=== PATIENT | female | born 1935 | race Caucasian/White ===

== ENCOUNTER → 2017-08-26 | Outpatient (CLI) | payer MEDICARE, OTHER ==
[~2017-08-26] MED LIST: ALBUTEROL0.09 MG/A1 IH; ALLERGY MED; ASPIR-LOW81 MG PO; ASPIRIN 81M81 MG/TA2 PO; AVELOX 400MG T400 MG PO; BLOOD PRESSURE MED; CETIRIZINE; COZAAR100 MG PO; DUO-KAPS1 CAP PO; LISINOPRIL; NORVASC2.5 MG PO; PERCOCET 325 MG1 TA2 PO; SINGULAIR10 MG PO; VITAMIN C PUR1000 MG; ZOCOR40 MG PO; ZYRTEC 10MG
== END ==
LOC: COL.RAD 10:13
DX: M48.02 Spinal stenosis, cervical region (principal); R60.0 Localized edema; Z98.1 Arthrodesis status; Z98.890 Other specified postprocedural states

== ENCOUNTER 2018-01-10 12:20 | Emergency (ER) | payer MEDICARE, OTHER ==
[~2018-01-10] VITALS: Ht 154.9 cm; Wt 53.6 kg
[~2018-01-10 12:20] MED LIST changes: -LEXAPRO 10MG10 MG PO; -NORVASC 5MG5 MG/TAB PO; -VITAMIN B COMPL1 T16 PO; -ZYRTEC 10MG10 MG PO
[2018-01-10 12:22] VITALS: BP 135/63; PULSE 67; TEMP 97.6
[2018-01-10] MEDS ORDERED: NORVASC 5MG5 MG/TAB PO (12:38)
[2018-01-10] MEDS ORDERED: ZYRTEC 10MG10 MG PO (12:39)
[2018-01-10] MEDS ORDERED: COZAAR100 MG PO (12:40)
[2018-01-10] MEDS ORDERED: LEXAPRO 10MG10 MG PO (12:40)
[2018-01-10] MEDS ORDERED: VITAMIN B COMPL1 T16 PO (12:40)
== END 2018-01-10 13:40 | disposition home or self-care (01) ==
LOC: COL.ER 12:20
DX: M79.662 Pain in left lower leg (principal); I10 Essential (primary) hypertension

== ENCOUNTER → 2018-01-10 | Outpatient (CLI) | payer MEDICARE, OTHER ==
[~2018-01-10] MED LIST changes: +LEXAPRO 10MG10 MG PO; +NORVASC 5MG5 MG/TAB PO; +VITAMIN B COMPL1 T16 PO; +ZYRTEC 10MG10 MG PO
[2018-01-10 10:48] LABS: CALCIUM 9.7 mg/dL (8.4-10.2); CREATININE, serum 0.73 mg/dL (0.52-1.25); POTASSIUM 4.6 mmol/L (3.4-5.0)
== END ==
LOC: COL.LAB 10:13
PROVIDERS: Nurse Practitioner Family
DX: M79.662 Pain in left lower leg (principal)

== ENCOUNTER 2018-05-28 08:26 | Emergency (ER) | payer MEDICARE, OTHER ==
[~2018-05-28] VITALS: Ht 154.9 cm; Wt 53.6 kg
[~2018-05-28 08:26] MED LIST changes: +LEXAPRO 10MG10 MG PO; +NORVASC 5MG5 MG/TAB PO; +VITAMIN B COMPL1 T16 PO; +ZYRTEC 10MG10 MG PO
[2018-05-28 08:44] LABS: COLLECTION METHOD CLEAN CATCH
[2018-05-28] MEDS ORDERED: LIPITOR 10MG10 MG PO (08:50)
[2018-05-28] MEDS ORDERED: ASPIRIN 81M81 MG/TA2 PO (08:51)
[2018-05-28] MEDS ORDERED: SINGULAIR 110 MG/TAB PO (08:52)
[2018-05-28 09:29] LABS: BUDDING YEAST Present /hpf; PH 7 (5-8); SQUAMOUS EPITHELIAL 0-2 /hpf; URINE APPEARANCE Cloudy; URINE BACTERIA Rare /hpf; URINE BILIRUBIN Negative (NEGATIVE); URINE BLOOD 3+ (NEGATIVE); URINE COLOR Yellow; URINE GLUCOSE Negative (NEGATIVE); URINE KETONE Negative (NEGATIVE); URINE LEUKOCYTE ESTERASE 3+ (NEGATIVE); URINE NITRATE Negative (NEGATIVE); URINE PROTEIN(semi-quant) 2+ (NEGATIVE); URINE RBC >50 /hpf; URINE UROBILINOGEN Negative (NEGATIVE)
[2018-05-28] MEDS ORDERED: CEPHALEXIN500 M1 PO (09:36)
[2018-05-28] MEDS ORDERED: MICONAZOLE NIT100 MG VG ×2 (09:36)
[2018-05-28 09:45] VITALS: PULSE 89; TEMP 97.6
== END 2018-05-28 09:48 | disposition home or self-care (01) ==
LOC: COL.ER 08:26
PROVIDERS: Family Medicine
DX: N30.00 Acute cystitis without hematuria (principal); I10 Essential (primary) hypertension; B37.3 Candidiasis of vulva and vagina; Z90.710 Acquired absence of both cervix and uterus; Z90.89 Acquired absence of other organs

== ENCOUNTER → 2020-01-14 | Outpatient (CLI) | payer MEDICARE, OTHER ==
[~2020-01-14] MED LIST changes: +CEPHALEXIN500 M1 PO; +LIPITOR 10MG10 MG PO; +MICONAZOLE NIT100 MG VG; +SINGULAIR 110 MG/TAB PO
== END ==
LOC: COL.RAD 07:27
DX: R10.9 Unspecified abdominal pain (principal); Z98.890 Other specified postprocedural states

== ENCOUNTER → 2020-03-24 | Outpatient (CLI) | payer MEDICARE, OTHER | END | disposition still patient (30) | LOC: COL.RAD 08:00 | DX: M48.061 Spinal stenosis, lumbar region without neurogenic claudication (principal); M47.816 Spondylosis without myelopathy or radiculopathy, lumbar region; Z98.890 Other specified postprocedural states; Z98.1 Arthrodesis status ==

== ENCOUNTER → 2020-10-05 | Outpatient (CLI) | payer MEDICARE, OTHER ==
[~2020-10-05] MED LIST changes: +BALANCE B-1001 TA1 PO; +MEDROL 4MG DOSPA4 MG PO; +NEURONTIN100 MG/CAP PO; -VITAMIN B COMPL1 T16 PO
== END ==
LOC: COL.RAD 09:54
DX: N30.20 Other chronic cystitis without hematuria (principal)

== ENCOUNTER 2020-11-18 09:57 | Emergency (ER) | payer MEDICARE, OTHER ==
[~2020-11-18] VITALS: Ht 154.9 cm; Wt 52.3 kg
[~2020-11-18 09:57] MED LIST changes: -MEDROL 4MG DOSPA4 MG PO; -NEURONTIN100 MG/CAP PO
[2020-11-18 10:03] VITALS: TEMP 98.4
[2020-11-18 11:35] LABS: BASO % 0.7 % (0.0-2.0); EOS # 0.1 (0.0-0.7); EOS % 1.2 % (0-4.0); GRAN # 3.1 (1.4-6.5); GRAN % 53.2 % (42.2-75.2); HEMOGLOBIN 11.6 g/dl (12.5-16.0); LYMPH % 33.8 % (20.0-51.0); MEAN CELL VOLUME 93 fl (80.0-100.0); MEAN CORPUSCULAR HEMOGLOBIN 32 pg (27.0-31.0); MEAN CORPUSCULAR HGB CONC 34 g/dl (33.0-37.0); MEAN PLATELET VOLUME 8.9 fl (7.4-10.4); MONO # 0.6 (0.1-0.6); MONO % 10.9 % (1.7-9.3); PLATELET COUNT 238 K/mm3 (130-400); RED BLOOD COUNT 3.65 M/mm3 (4.10-5.30); REDCELL DISTRIBUTION WIDTH-CV 12.4 % (11.5-14.5)
[2020-11-18 11:39] LABS: HEMATOCRIT 34.1 % (37.0-47.0)
[2020-11-18 11:45] LABS: ALBUMIN 4.1 gm/dL (3.5-5.0); BILIRUBIN,TOTAL 0.8 mg/dL (0.0-1.0); C-REACTIVE PROTEIN 1.3 mg/dL (0.0-0.9); CALCIUM 9.4 mg/dL (8.4-10.2); CREATININE, serum 0.59 (0.52-1.25); POTASSIUM 4.2 mmol/L (3.4-5.0); TOTAL PROTEIN 6.8 gm/dL (6.4-8.2)
[2020-11-18 12:21] VITALS: BP 140/86; PULSE 70
[2020-12-07] MEDS ORDERED: NEURONTIN100 MG/CAP PO (11:43)
== END 2020-11-18 12:22 | disposition home or self-care (01) ==
LOC: COL.ER 09:57
PROVIDERS: Nurse Practitioner
DX: M79.604 Pain in right leg (principal); R60.0 Localized edema; Z88.2 Allergy status to sulfonamides; Z91.041 Radiographic dye allergy status

== ENCOUNTER 2020-12-04 15:45 | Emergency (ER) | payer MEDICARE, OTHER ==
[~2020-12-04] VITALS: Ht 154.9 cm; Wt 49.5 kg
[2020-12-04 16:07] VITALS: TEMP 98.3
[2020-12-04] MEDS ORDERED: MEDROL 4MG DOSPA4 MG PO (17:24)
[2020-12-04] MEDS ORDERED: NEURONTIN100 MG/CAP PO (17:24)
[2020-12-04 17:40] VITALS: BP 142/65; PULSE 57
[2020-12-07] MEDS ORDERED: NEURONTIN100 MG/CAP PO (11:43)
== END 2020-12-04 17:40 | disposition home or self-care (01) ==
LOC: COL.ER 15:45
DX: M54.16 Radiculopathy, lumbar region (principal); M79.604 Pain in right leg; R60.0 Localized edema; G89.29 Other chronic pain; M79.89 Other specified soft tissue disorders; Z98.890 Other specified postprocedural states
CPT/HCPCS: J1170; J2405; J2930

== ENCOUNTER → 2020-12-07 | Outpatient (CLI) | payer MEDICARE, OTHER ==
[~2020-12-07] VITALS: Ht 154.9 cm; Wt 49.8 kg
[~2020-12-07] MED LIST changes: +MEDROL 4MG DOSPA4 MG PO; +NEURONTIN100 MG/CAP PO
[2020-12-07 11:53] VITALS: BP 148/79; PULSE 94
[2020-12-07 13:39] VITALS: BP 111/50; PULSE 54
[2020-12-07 13:45] VITALS: BP 125/67; PULSE 81
--- NOTE | 2020-12-07 13:54 | NUR ---
Discharge instructions gone over with pt. Verbalized understanding of instructions. Copy given to pt.
[2020-12-07 14:00] VITALS: BP 157/73; PULSE 74
[2020-12-07 14:15] VITALS: BP 139/69; PULSE 80
== END ==
LOC: COL.RAD 11:23
DX: M43.22 Fusion of spine, cervical region (principal); Z98.890 Other specified postprocedural states; R19.00 Intra-abdominal and pelvic swelling, mass and lump, unspecified site; R25.2 Cramp and spasm
CPT/HCPCS: A9585; J2704; J3010

== ENCOUNTER → 2020-12-18 | Outpatient (CLI) | payer MEDICARE, OTHER ==
[~2020-12-18] VITALS: Ht 154.9 cm; Wt 49.1 kg
[2020-12-18] VITALS (8 sets, daily range): BP systolic 125–157; BP diastolic 58–74; PULSE 69–92
--- NOTE | 2020-12-18 08:05 | NUR ---
Pt to ct per wheelchair. Pt positioned prone on table. Monitors applied. Dr Luna present and into talk with pt.
--- NOTE | 2020-12-18 08:20 | NUR ---
Specimens obtained and placed in formalin by Dr Luna. Specimens labeled and placed in both formalin and RPMI.
--- NOTE | 2020-12-18 08:39 | NUR ---
Discharge instructions gone over with pt and son. Verbalized understanding of instructions. Copy given to pt.
== END ==
LOC: COL.RAD 07:00
DX: M21.371 Foot drop, right foot (principal); M62.89 Other specified disorders of muscle

== ENCOUNTER 2021-03-21 13:00 | Outpatient (RCR) | payer MEDICARE, OTHER ==
[~2021-03-21] VITALS: Ht 154.9 cm; Wt 41.8 kg
[2021-03-21] VITALS (9 sets, daily range): BP systolic 104–156; BP diastolic 54–85; PULSE 65–73; TEMP 98.2–98.8
== END 2021-03-21 18:11 ==
LOC: EUO 13:00
DX: Z11.52 Encounter for screening for COVID-19 (principal); C83.39 Diffuse large B-cell lymphoma, extranodal and solid organ sites
CPT/HCPCS: J7050; P9040

== ENCOUNTER 2021-04-07 10:25 | Emergency (ER) | payer MEDICARE, OTHER ==
[~2021-04-07] VITALS: Ht 154.9 cm; Wt 45.5 kg
[2021-04-07 10:42] VITALS: TEMP 99.5
[2021-04-07 11:02] LABS: COLLECTION METHOD CLEAN CATCH
[2021-04-07 11:08] LABS: PH 7 (5-8); SQUAMOUS EPITHELIAL None Seen /hpf; URINE APPEARANCE Clear; URINE BACTERIA Rare /hpf; URINE BILIRUBIN Negative (NEGATIVE); URINE BLOOD Negative (NEGATIVE); URINE COLOR Yellow; URINE GLUCOSE Negative (NEGATIVE); URINE KETONE Negative (NEGATIVE); URINE LEUKOCYTE ESTERASE Negative (NEGATIVE); URINE NITRATE Negative (NEGATIVE); URINE PROTEIN(semi-quant) Negative (NEGATIVE)
[2021-04-07 11:11] LABS: MUCOUS Present /lpf
[2021-04-07 11:35] LABS: MEAN CELL VOLUME 87 fl (80.0-100.0); MEAN CORPUSCULAR HGB CONC 34 g/dl (33.0-37.0); MEAN PLATELET VOLUME 9.5 fl (7.4-10.4); PLATELET COUNT 226 K/mm3 (130-400); RED BLOOD COUNT 3.22 M/mm3 (4.10-5.30); REDCELL DISTRIBUTION WIDTH-CV 14.7 % (11.5-14.5)
[2021-04-07 11:41] LABS: HEMOGLOBIN 9.5 g/dl (12.5-16.0); MEAN CORPUSCULAR HEMOGLOBIN 30 pg (27.0-31.0)
[2021-04-07 11:55] LABS: ALBUMIN 2.4 gm/dL (3.4-4.8); ALKALINE PHOSPHATASE 53 U/L (0-750); ANION GAP 9 mmol/L (7-16); AST,SGOT 17 U/L (5-34); BILIRUBIN,TOTAL 0.9 mg/dL (0.2-1.2); BLOOD UREA NITROGEN 11 mg/dL (10-20); CALCIUM 8.3 mg/dL (8.4-10.2); CARBON DIOXIDE 26 mmol/L (23-31); CHLORIDE 97 mmol/L (98-107); CREATININE, serum 0.66 mg/dL (0.57-1.11); GLUCOSE 117 mg/dL (70-99); POTASSIUM 3.3 mmol/L (3.5-4.5); SODIUM 132 mmol/L (136-145); TOTAL PROTEIN 4.7 gm/dL (6.2-8.1)
[2021-04-07 11:56] LABS: ALANINE AMINOTRANSFERASE < 6 U/L (0-55); BAND 5 % (0-10); LYMPHOCYTE 5 % (20.0-51.0); NEUTROPHILS 83 % (42.0-75.2); PLATELET ESTIMATE NORMAL (NORMAL)
[2021-04-07 11:59] LABS: OVALOCYTES 1+
[2021-04-07 13:08] VITALS: BP 128/56; PULSE 72
== END 2021-04-07 13:09 | disposition home or self-care (01) ==
LOC: COL.ER 10:25
PROVIDERS: Family Medicine
DX: R50.9 Fever, unspecified (principal); G62.9 Polyneuropathy, unspecified; Z20.822 Contact with and (suspected) exposure to COVID-19; Z79.899 Other long term (current) drug therapy
CPT/HCPCS: J7030

== ENCOUNTER → 2021-07-27 | Outpatient (CLI) | payer MEDICARE, OTHER | LOC: COL.RAD 13:51 | DX: K57.30 Diverticulosis of large intestine without perforation or abscess without bleeding (principal); I70.8 Atherosclerosis of other arteries; M47.816 Spondylosis without myelopathy or radiculopathy, lumbar region; M43.16 Spondylolisthesis, lumbar region; Z98.1 Arthrodesis status; Z90.710 Acquired absence of both cervix and uterus ==

== ENCOUNTER 2023-03-22 16:16 | Emergency (ER) | payer MEDICARE, OTHER ==
[~2023-03-22] VITALS: Ht 154.9 cm; Wt 52.3 kg
[2023-03-22 17:00] LABS: BASO % 0.3 % (0.0-2.0); EOS # 0.1 K/mm3 (0.0-0.7); EOS % 0.7 % (0.0-4.0); GRAN # 5.1 K/mm3 (1.4-6.5); GRAN % 73.1 % (42.2-75.2); HEMATOCRIT 37.7 % (37.0-47.0); HEMOGLOBIN 12.1 g/dl (12.5-16.0); LYMPH # 1.1 K/mm3 (1.2-3.4); LYMPH % 15.5 % (20.0-51.0); MEAN CELL VOLUME 91 fl (80.0-100.0); MEAN CORPUSCULAR HEMOGLOBIN 29 pg (27-31); MEAN CORPUSCULAR HGB CONC 32 g/dl (33.0-37.0); MEAN PLATELET VOLUME 9.8 fl (7.4-10.4); MONO # 0.7 K/mm3 (0.1-0.6); MONO % 9.5 % (1.7-9.3); PLATELET COUNT 284 K/mm3 (130-400); RED BLOOD COUNT 4.14 M/mm3 (4.10-5.30); REDCELL DISTRIBUTION WIDTH-CV 12.7 % (11.5-14.5)
[2023-03-22 17:19] LABS: ALBUMIN 3.7 gm/dL (3.4-4.8); BILIRUBIN,TOTAL 0.7 mg/dL (0.2-1.2); CALCIUM 9.5 mg/dL (8.4-10.2); CREATININE, serum 0.75 mg/dL (0.57-1.11); POTASSIUM 3.7 mmol/L (3.5-4.5); TOTAL PROTEIN 6.7 gm/dL (6.2-8.1)
[2023-03-22 17:48] VITALS: BP 128/84; PULSE 74; TEMP 98.8
== END 2023-03-22 18:00 | disposition home or self-care (01) ==
LOC: COL.ER 16:16
PROVIDERS: Family Medicine
DX: S39.012A Strain of muscle, fascia and tendon of lower back, initial encounter (principal); R11.2 Nausea with vomiting, unspecified; W18.30XA Fall on same level, unspecified, initial encounter
CPT/HCPCS: J2405; J3010